=== PATIENT | male | born 1975 | race Caucasian/White ===

== ENCOUNTER 2020-08-11 11:32 | Inpatient (IN) | payer MEDICAID ==
[~2020-08-11] VITALS: Ht 167.6 cm; Wt 71.0 kg
[2020-08-11] MEDS ORDERED: HALOPERIDOL 5 MG TABLET PO PRN (13:45)
[2020-08-11] MEDS ORDERED: ZOLPIDEM TARTRATE 10 MG TABLET PO PRN (13:45)
[2020-08-11 15:00] VITALS: BP 140/98
[2020-08-11 17:14] VITALS: BP 140/98
[2020-08-11] MEDS: LORazepam 1 MG TABLET PO PRN (18:11)
[2020-08-12 06:29] VITALS: BP 132/91
[2020-08-12 08:11] LABS: BASOPHILS % (AUTO) 0.3 % (0.0-2.0); EOSINOPHILS % (AUTO) 1.1 % (1.0-6.0); HEMATOCRIT 47.9 % (41-53); HEMOGLOBIN 16.1 g/dL (13.5-17.5); LYMPHOCYTES # (AUTO) 1.1 K/uL (1.0-4.8); LYMPHOCYTES % (AUTO) 17.3 % (22.0-44.0); MEAN CORPUSCULAR HEMOGLOBIN 31.9 pg (26.0-34.0); MEAN CORPUSCULAR HGB CONC 33.7 G/dL (31.0-37.0); MEAN CORPUSCULAR VOLUME 95 fL (80-100); MONOCYTES # (AUTO) 0.4 K/uL (0.1-1.0); MONOCYTES % (AUTO) 5.8 % (2.0-9.0); NEUTROPHILS # (AUTO) 4.6 K/uL (1.8-7.7); NEUTROPHILS % (AUTO) 75.5 % (40.0-70.0); PLATELET COUNT (AUTO) 225 K/uL (150-450); RED BLOOD CELL COUNT(AUTO) 5.05 MIL/uL (4.50-5.90); RED CELL DISTRIBUTION WIDTH 13.4 % (11.5-14.5)
[2020-08-12 08:21] VITALS: BP 120/81
[2020-08-12 08:37] LABS: ALANINE AMINOTRANSFERASE 16 U/L (12-78); ALBUMIN 3.7 g/dL (3.4-5.0); ALKALINE PHOSPHATASE 55 U/L (46-116); ANION GAP 8 mmol/L (8-16); ASPARTATE AMINOTRANSFERASE 13 U/L (15-37); BILIRUBIN,TOTAL 0.8 mg/dL (0.1-1.0); CALCIUM, TOTAL 9.3 mg/dL (8.8-10.5); CARBON DIOXIDE 29 mmol/L (22-29); CHLORIDE 105 mmol/L (98-107); CHOL/HDL RATIO 3.5 (4.2-7.3); CHOLESTEROL 191 mg/dL (131-200); CREATININE 0.92 mg/dL (0.60-1.30); FREE T4 (FREE THYROXINE) 1.04 ng/dL (0.76-1.46); GLOMERULAR FILTR. RATE CALC > 60 mL/min (>60); GLUCOSE,RANDOM 95 mg/dL (70-110); HDL CHOLESTEROL 54 mg/dL (40-60); LDL CHOL (CALC.) 121 mg/dL (0-130); SODIUM SERUM 142 mmol/L (136-145); TOTAL PROTEIN, SERUM 7.3 g/dL (6.4-8.2); TRIGLYCERIDES 78 mg/dL (15-150); UREA NITROGEN, BLOOD 10 mg/dL (7-18)
[2020-08-12 16:22] VITALS: BP 120/80
[2020-08-12] MEDS: LORazepam 1 MG TABLET PO PRN (16:44)
[2020-08-12] MEDS: LITHIUM CARBONATE 300 MG CAPSULE PO SCH (16:44)
[2020-08-12] MEDS ORDERED: OLANZapine 5 MG TABLET PO SCH (21:00)
[2020-08-13 06:41] VITALS: BP 133/89
[2020-08-13 08:14] VITALS: BP 120/73
[2020-08-13] MEDS: LITHIUM CARBONATE 300 MG CAPSULE PO SCH (08:58)
[2020-08-13] MEDS ORDERED: LITH300C3 PO (11:28)
[2020-08-13] MEDS ORDERED: OLAN5TAB2 PO (11:29)
== END 2020-08-13 14:20 | disposition home or self-care (01) | DRG 753 ==
LOC: B2S 13:30
DX: F31.63 Bipolar disorder, current episode mixed, severe, without psychotic features (principal); F10.10 Alcohol abuse, uncomplicated; Z59.0 Homelessness; R00.1 Bradycardia, unspecified; Z20.822 Contact with and (suspected) exposure to COVID-19
CPT/HCPCS: 83036; 84436; 84439; 84443